=== PATIENT | female | born 1980 | race Caucasian/White ===

== ENCOUNTER 2016-07-17 12:17 | Emergency (ER) | payer SELFPAY ==
[~2016-07-17 12:17] MED LIST: COLACE100 M1 PO; IBUPROFEN800 M1 PO; IBUPROFEN800 MG PO; KEFLEX500 M1 PO; MOTRIN800 MG PO; NORCO 5-325 TA1 EACH PO; NORCO 5/325 TAB1 TAB PO; OMEPRAZOLE40 M1 PO; OXYCODONE/APAP PO; PERCOCET 5/3251 TAB PO; PRENATAL1 EACH PO; PRILOSEC40 M1 PO; PRILOSEC40 MG PO; ZOFRAN4 M2 PO
[2016-07-17 13:16] LABS: ANION GAP 13 mmol/L (0-20); BLOOD UREA NITROGEN 9 mg/dl (6-24); CALCIUM 9.2 mg/dl (8.5-10.5); CARBON DIOXIDE-VENOUS 21 mmol/L (22-32); CHLORIDE 113 mmol/l (96-110); GLUCOSE 87 mg/dL (70-110); MAGNESIUM 2.1 mg/dl (1.8-2.6); POTASSIUM 3.9 mmol/L (3.7-5.1); SODIUM 143 mmol/L (135-145); eGFR VALUE FOR BLACK >90 mL/Min
[2016-07-17 13:19] LABS: TSH-THYROID STIMULATING HORM. 0.69 uIU/ml (0.40-3.80)
[2016-07-17 13:52] LABS: BASO % 0.1 % (0-2); EOSINOPHIL ABSOLUTE COUNT 0.2 tho/cmm (0.0-0.7); HCT-HEMATOCRIT 42.6 % (34.0-49.0); HGB-HEMOGLOBIN 14.9 gm/dl (12.0-15.5); IMMATURE GRANULOCYTES ABSOLUTE 0.02 tho/cmm (0-0.03); IMMATURE GRANULOCYTES PERCENT 0.2 % (0-0.3); LYMPH % 27.4 % (20-45); LYMPH ABSOLUTE COUNT 2.5 tho/cmm (0.8-4.5); MCH (MEAN CORPUSCULAR HGB) 30.3 pg (28.0-32.0); MCV (MEAN CELL VOLUME) 86.8 fl (82.0-96.0); MEAN PLATELET VOLUME 9.9 cmc (9.4-12.4); MONO % 3.3 % (0-12); MONOCYTE ABSOLUTE COUNT 0.3 tho/cmm (0.0-1.2); NEUTROPHIL ABSOLUTE COUNT 6.2 tho/cmm (1.6-8.0); NEUTROPHIL-AUTOMATED 6.2 tho/cmm (1.6-8.0); PLATELET COUNT 215 tho/cmm (150-450); RED BLOOD COUNT 4.91 mil/cmm (4.00-5.20); RED CELL DISTRIBUTION WIDTH 13.4 % (12.4-16.4); WHITE BLOOD COUNT 9.2 tho/cmm (4.0-10.0)
[2016-09-19] MEDS ORDERED: AMOXICILLIN500 M1 PO (13:58)
[2016-09-19] MEDS ORDERED: NORCO 5-325 TA1 EACH PO (13:59)
[2016-09-19] MEDS ORDERED: XANAX2 M1 PO (14:00)
[2016-09-19] MEDS ORDERED: LEXAPRO20 M2 PO (14:02)
[2016-09-19] MEDS ORDERED: TRAZODONE HCL50 M1 PO (14:05)
[2016-09-19] MEDS ORDERED: XANAX0.25 M1 PO (14:06)
[2016-09-19] MEDS ORDERED: TOPROL XL25 M1 PO (14:08)
[2016-09-19] MEDS ORDERED: IBUPROFEN200 M2 PO (14:11)
== END 2016-07-17 16:47 ==
LOC: EDMED 12:17
PROVIDERS: Emergency Medicine
DX: I48.92 Unspecified atrial flutter (principal); Z88.1 Allergy status to other antibiotic agents
CPT/HCPCS: J0153; J7030